=== PATIENT | female | born 1965 | race African-American/Black ===

== ENCOUNTER 2018-07-08 11:22 | Emergency (ER) | payer SELFPAY ==
[~2018-07-08] VITALS: Ht 160 cm; Wt 76.0 kg
[2018-07-08 14:15] VITALS: BP 123/79
== END 2018-07-08 17:05 | disposition left against medical advice (07) ==
LOC: ER 13:37
DX: Z53.21 Procedure and treatment not carried out due to patient leaving prior to being seen by health care provider (principal)

== ENCOUNTER 2024-01-14 15:03 | Emergency (ER) | payer MEDICAID ==
[~2024-01-14] VITALS: Ht 165.1 cm; Wt 65.0 kg
[2024-01-14 15:07] VITALS: TEMP 98.4; O2SAT 99
[2024-01-14] MEDS ORDERED: IBUP-2030 MT (15:58)
[2024-01-14] MEDS ORDERED: HYDR-4001 MT (15:58)
[2024-01-14 16:19] VITALS: BP 116/79; PULSE 100; RESP 18
[2024-01-14] MEDS: IBUPROFEN 800MG TABLET PO ONE (16:19)
[2024-01-14] MEDS: HYDROCODONE/ACETAMINOPHEN 5/325MG TABLET PO ONE (16:19)
== END 2024-01-14 16:21 | disposition home or self-care (01) ==
LOC: ER 15:03
DX: S60.212A Contusion of left wrist, initial encounter (principal); E78.00 Pure hypercholesterolemia, unspecified; E03.9 Hypothyroidism, unspecified; Z90.710 Acquired absence of both cervix and uterus; V98.8XXA Other specified transport accidents, initial encounter; Y93.89 Activity, other specified; Y92.89 Other specified places as the place of occurrence of the external cause; Y99.8 Other external cause status
CPT/HCPCS: 99283